=== PATIENT | female | born 1960 | race Caucasian/White ===

== ENCOUNTER 2016-11-27 13:31 | Emergency (ER) | payer OTHER ==
[~2016-11-27] VITALS: Ht 160 cm; Wt 196.0 kg
[~2016-11-27 13:31] MED LIST: MOTRIN800 MG PO; NORCO 5/3251 TABLET PO; PEN-VEE K,VEET250 MG PO; PEN-VEE K,VEET500 MG PO
[2016-11-27 13:39] VITALS: BP 171/67
[2016-11-27] MEDS ORDERED: PEN-VEE K,VEET500 MG PO (14:16)
== END 2016-11-27 14:35 | disposition home or self-care (01) ==
LOC: EME 13:31
DX: K02.9 Dental caries, unspecified (principal); S02.5XXA Fracture of tooth (traumatic), initial encounter for closed fracture; K04.7 Periapical abscess without sinus
CPT/HCPCS: 99281; 99284